=== PATIENT | male | born 1960 | race Hispanic/Latino ===

== ENCOUNTER → 2025-02-19 | Day surgery (SDC) | payer OTHER ==
[~2025-02-19] MED LIST: FARXIGA10 MG PO; HYOSCYAMINE SULFATE 0.5 MG/ML INJ ONE; LIDOCAINE HCL 2% LOCAL INJ 5 ML SDV VIAL INJ ONE; METFORMIN HCL500 M2 PO; MIDAZOLAM HCL 2 MG/2 ML VIAL ONE; PIOGLITAZONE HC45 MG PO; PROPOFOL IV EMULSION 50 ML IV ONE
[2025-02-19] MEDS: LACTATED RINGER'S 1,000 ML ONE (12:52)
[2025-02-19 15:33] VITALS: TEMP 97.4
[2025-02-19 15:45] VITALS: BP 106/72; PULSE 75; RESP 16; O2SAT 96
== END | disposition home or self-care (01) ==
LOC: OR 11:48
PROVIDERS: ATTEND Internal Medicine Gastroenterology
DX: R19.5 Other fecal abnormalities (principal); D12.5 Benign neoplasm of sigmoid colon; D12.3 Benign neoplasm of transverse colon; K57.30 Diverticulosis of large intestine without perforation or abscess without bleeding; K64.8 Other hemorrhoids; E11.9 Type 2 diabetes mellitus without complications; Z79.84 Long term (current) use of oral hypoglycemic drugs; I45.10 Unspecified right bundle-branch block; Z79.899 Other long term (current) drug therapy
CPT/HCPCS: 36415; 45385; 82948; 93005; J1980; J2003; J2250; J2704; J7121; 45378